=== PATIENT | female | born 1990 | race Caucasian/White ===

== ENCOUNTER → 2016-02-14 | Outpatient (CLI) | payer OTHER ==
[~2016-02-14] MED LIST: MEDLIST
== END | disposition home or self-care (01) ==
LOC: C.PAPS 12:35
PROVIDERS: ATTEND Obstetrics & Gynecology
DX: Z01.419 Encounter for gynecological examination (general) (routine) without abnormal findings (principal)

== ENCOUNTER 2023-10-02 07:39 | Inpatient (IN) ==
[2023-10-02] MEDS ORDERED: OXYTOCIN 30 UNITS/NSS 30 UNITS/500 ML BAG IV PRN (08:15)
[2023-10-02] MEDS ORDERED: LIDOCAINE 1% LOCAL 20 ML VIAL INFIL PRN (08:15)
[2023-10-02] MEDS ORDERED: ACETAMINOPHEN 325 MG TAB PO PRN (08:15)
[2023-10-02 08:56] LABS: Hematocrit (blood only) 39.1 % (37.0-47.0); Hemoglobin 13.2 g/dl (12.0-16.0); Mean Corpuscular Hemoglobin 29.9 pg (25.0-34.0); Mean Corpuscular Hgb Conc 33.8 g/dL (32.0-36.0); Mean Corpuscular Volume 88.5 fL (80.0-100.0); Mean Platelet Volume 9.8 fL (9.4-12.4); Platelet Count 221 K/uL (130-400); RDW Standard Deviation 45.3 fL (36.4-46.3); Red Blood Count 4.42 M/uL (4.20-5.40); White Blood Count 11.57 K/ul (4.8-10.8)
[2023-10-02] MEDS: LACTATED RINGER'S 1,000 ML IV PRN (09:06)
[2023-10-02] MEDS: OXYTOCIN 30 UNITS/NSS 30 UNITS/500 ML BAG IV PRN (09:07)
--- NOTE | 2023-10-02 09:09 | History & Physical Report ---
Date of Service October 02, 2023 Assessment & Plan (1) Need for rhogam due to Rh negative mother: (2) Encounter for induction of labor: Plan Admit for IOL. [place]/pit started Pt has provided their birthing plan; includes desire for minimal pain medication Admission and Anticipated Discharge Date Admission Date: October 02, 2023 History of Present Illness Primary Care Provider: Kevin Benjamin MD Patient is a 33 y/o female currently at 40 5/7 with an TERESA of 09/26/23 as determined by LMP who is here for induction of labor. Her was complicated by breech presentation at 36w, requiring ECV on 09/10. She has had regular appointments with OB. She denies fevers, fatigue, VELIZ, SOB, chest pain, leg swelling, or n/v exceeding baseline -related symptoms. Mild, irregular contractions; movement present; no fluid loss or bloody show; External FHT and external uterine monitors used, FHT cat 1 Blood type: A-; Rhogam given 07/04 Antibody screen: Neg GBS: Neg Rubella: Immune VDRL/RPR: Non-reactive Gonorrhea: Not detected Chalmydia: Not detected HIV: Non-reactive HbSAg: Non-reactive Allergies Allergy/AdvReac Type Severity Reaction Status Date / Time No Known Allergies Allergy Verified 10/02/23 09:53 Home Medications Medication Instructions Recorded Confirmed Type calcium acetate PO 02/08/23 10/01/23 History coenzyme Q10 [Co Q-10] PO 02/08/23 10/01/23 History fish,bora,flax oils-om3,6,9no1 PO 02/08/23 10/01/23 History [Triple [place] 3-6-9] folic acid PO 02/08/23 10/01/23 History vit with calcium-iron tab PO 02/08/23 10/01/23 History fum-folic acid 27 mg-1 mg tablet ferrous sulfate 09/10/23 10/01/23 History valacyclovir 500 mg tablet 500 mg PO BID 5 weeks #70 tabs 09/21/23 10/01/23 Rx (Valtrex) Past Med/Surg History Problem List (Updated 10/02/23 @ 09:10 by Constance Davis MD) Encounter for induction of labor Breech presentation Need for rhogam due to Rh negative mother Encounter for anatomic survey Supervision of normal intrauterine in primigravida Overweight (BMI 25.0-29.9) Fatigue History of melanoma excision 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, autosomal dominant, pre conceptual genetic consult 11/26/19 Medical History Encounter for preconception consultation Encounter for gynecological examination without abnormal finding Fatigue Contact dermatitis Acne Herpes genitalia Surgical History (Updated 11/27/22 @ 10:10 by Jose Chris DO) Melanoma removal from Right shoulder, 2022 S/P tonsillectomy H/O tooth extraction Family History (Updated 10/02/23 @ 09:52 by Kimberly Garcia, JADE) Mother CMT (Eyszjha-Eabdc-Xrldu disease) Lwrqzgr-Tzwmv-Jeurk disease Kidney malignancy Appendix carcinoma Father Skin cancer Eye cancer Hypertension Grandmother (Maternal) Colorectal cancer Grandfather (Paternal) Myocardial infarction Grandmother (Paternal) Melanoma Denies family history of Ovarian cancer Prostate cancer Breast cancer Social History Smoking Status: Never smoker Do You Dip or Chew Tobacco: No; Hx Alcohol Use: No (social) Hx Substance Use: No Preferred Language: Danish Communication Ability: Effective Baby Registry Sales Consultant Required: No Beliefs That Will Affect Care: None marital status: marital status details: Darin (36) [phone] Current Living Situation: Spouse Current Living Situation Comment: lives with , 1 dog current occupational status: employed current occupation: real estate [employer] Childhood Exposure to Second-Hand Smoke: No Dental Care, Regularly: Yes Physical Activity Frequency: 3-4 Times per Week Seatbelt Use: always Sunscreen Use: Yes Do you think of yourself as: straight/heterosexual Gender Identity: Female Assistive Devices: None Physical Exam 2 Physical Exam: General: Alert and oriented. No acute distress CV: Regular rate and rhythm. No murmurs. Respiratory: CTA bilaterally. No rhonchi, wheezes, or crackles. No increased work of breathing. Abdomen: Gravid: Soft, nontender upon palpation Pelvic: 1.5 / 25 / -[address] Mcnamara Lower extremities: NO LE edema. No deep calf pain. Results & Data Results & Data Vital Signs (Past 12 Hours) Vital Signs Pulse BP 10/02/23 08:28 100 H 129/88 Laboratory Results 10/02/23 08:37 Supervising Physician Co-Signing Physician Notes Patient seen with resident and agree with the above findings and plan. Resident Activity Tracking Resident Involvement: Resident Care Provided Care Provided: OB Delivery
[2023-10-02] MEDS: CALCIUM CARBONATE 500 MG CHEWABLE TAB PO PRN (15:17)
--- NOTE | 2023-10-03 04:24 | Labor Progress Brief Note ---
Date of Service October 03, 2023 Subjective Reason For Note: Routine Evaluation Assessment & Plan (1) Encounter for induction of labor: Plan: Minimal progress noted. Spontaneous rupture of membranes at around 1 PM yest erday. Currently at 28 and patient not noting significant discomfort with contractions. Discussed IUPC for monitoring of of contractions as were having difficulty tracking contractions consistently. Patient agreeable to IUPC placement. Will increase maximum Pit dosing up to 36. Vitals within normal limits. Today to monitor. (2) Supervision of normal intrauterine in primigravida: Trimester: third trimester Qualified Code(s): Z34.03 - Encounter for supervision of normal first , third trimester Admission and Anticipated Discharge Date Admission Date: October 02, 2023 Physical Exam Genitourinary: Manual OB Exam: + cervical dilation (4-5), + cervical effacement 70%, + station high and + amniotic fluid meconium OB Exam Monitor Tracing: + external FHT monitor used Results & Data Vital Signs (Past 12 Hours) Vital Signs Temp Pulse Resp BP 10/03/23 04:11 80 128/74 10/03/23 04:07 18 10/03/23 04:07 36.7 C 18 10/03/23 00:42 36.5 C 76 18 134/78 10/02/23 21:51 74 131/88 10/02/23 20:51 18 10/02/23 20:51 18 10/02/23 19:55 18 10/02/23 19:55 18 10/02/23 18:05 36.6 C 18 10/02/23 18:04 72 131/88 10/02/23 18:00 18 10/02/23 18:00 18 10/02/23 17:50 18 10/02/23 17:50 18 Coding Level of Care Code None Diagnoses Encounter for induction of labor Z34.90 Encounter for supervision of normal first in third trimester Z34.03 Trimester: third trimester
[2023-10-03] MEDS ORDERED: Nursing to Pharmacy Communication SCH (08:30)
--- NOTE | 2023-10-03 10:24 | Labor Progress Brief Note ---
Date of Service October 03, 2023 Subjective Presented to inform pt that I am taking over for call after signout from prior provider. Currently on pit break and had a snack, pitocin just restarted Assessment & Plan (1) Encounter for induction of labor: Plan: 33 yo G1 at 41 wga here for iol VSS Fetus cat 1 Labor - s/p pit break, iupc appears to be in correct position so will titrate pitocin. Pt desires to continue induction process GBS neg epidural prn Admission and Anticipated Discharge Date Admission Date: October 02, 2023 Physical Exam Genitourinary: Manual OB Exam: + cervical dilation (4-5), + cervical effacement 50% and + station -2 OB Exam Monitor Tracing: + external FHT monitor used, + intra-uterine pressure catheter used (q7, not adequate yet) and + category I (130/mod/+accel/-decel) Results & Data Vital Signs (Past 12 Hours) Vital Signs Temp Pulse Resp BP 10/03/23 09:43 76 129/77 10/03/23 08:52 97.9 F 84 20 126/75 10/03/23 08:11 84 123/78 10/03/23 07:05 20 10/03/23 07:05 97.9 F 20 10/03/23 06:22 98.1 F 82 18 124/81 10/03/23 04:11 80 128/74 10/03/23 04:07 18 10/03/23 04:07 98.1 F 18 10/03/23 00:42 97.7 F 76 18 134/78 Coding Level of Care Code None Diagnoses Encounter for induction of labor Z34.90
--- NOTE | 2023-10-03 13:28 | Labor Progress Brief Note ---
Date of Service October 03, 2023 Subjective Resting, pit at 20, still not feeling too much Assessment & Plan (1) Encounter for induction of labor: Plan: 33 yo G1 at 41 wga here for iol VSS Fetus cat 1 Labor - pit at 20 now, I think SVE is essentially unchanged. Discussed mvu goals and would go to about 30 for pit but if still really not progressing, may be indicative of low likelihood of success/ftp for this induction. Pt verbalized understanding. Will continue induction, iupc exchanged to make sure still reading appropriately GBS neg epidural prn Admission and Anticipated Discharge Date Admission Date: October 02, 2023 Physical Exam Genitourinary: Manual OB Exam: + cervical dilation (4-5), + cervical effacement 50% and + station -2 OB Exam Monitor Tracing: + external FHT monitor used, + intra-uterine pressure catheter used (q4. mvus 100-150) and + category I (130/mod/+accel/-decel) Results & Data Vital Signs (Past 12 Hours) Vital Signs Temp Pulse Resp BP 10/03/23 12:58 98.4 F 76 20 128/80 10/03/23 12:01 81 123/83 10/03/23 10:55 98.4 F 81 20 128/76 10/03/23 09:43 76 129/77 10/03/23 08:52 97.9 F 84 20 126/75 10/03/23 08:11 84 123/78 10/03/23 07:05 20 10/03/23 07:05 97.9 F 20 10/03/23 06:22 98.1 F 82 18 124/81 10/03/23 04:11 80 128/74 10/03/23 04:07 18 10/03/23 04:07 98.1 F 18 Coding Level of Care Code None Diagnoses Encounter for induction of labor Z34.90
[2023-10-03] MEDS ORDERED: SODIUM CHLORIDE 0.9% 250 ML IV PRN (15:48)
[2023-10-03] MEDS: LACTATED RINGER'S 1,000 ML IV SCH (16:35)
[2023-10-03] MEDS ORDERED: fentaNYL citrate PF 100 MCG/2 ML VIAL ONE (16:46)
--- NOTE | 2023-10-03 16:46 | Labor Progress Brief Note ---
Date of Service October 03, 2023 Subjective feeling some ctx at 3/10 but not consistent Assessment & Plan (1) Encounter for induction of labor: Plan: 33 yo G1 at 41 wga here for iol VSS Fetus cat 1 Labor - pit has hit 30 again now and still can't get ctx adequate throughout this time, cervix has not changed essentially since yesterday afternoon. Discussed given this would meet criteria for failed induction and rec for CS. Pt and fob in agreement and desired to proceed. Discussed indications, risks, benefits, alternatives with risks including infection, bleeding, injury to adjacent structures (bowel, bladder, ureters, blood vessels, nerves, baby), possible need for blood transfusion and/or life saving hysterectomy, VTE. Consent reviewed in detail w/ pt and signed after all questions answered to her satisfaction. Admission and Anticipated Discharge Date Admission Date: October 02, 2023 Physical Exam Genitourinary: Manual OB Exam: + cervical dilation (4-5), + cervical effacement 50% and + station -2 OB Exam Monitor Tracing: + external FHT monitor used, + intra-uterine pressure catheter used (q3-4. mvus adequate for very short period of time then inadequate s/p void) and + category I (130/mod/+ accel/-decel) Results & Data Vital Signs (Past 12 Hours) Vital Signs Temp Pulse Resp BP 10/03/23 16:03 76 127/87 10/03/23 15:01 84 142/94 H 10/03/23 15:00 20 10/03/23 15:00 98.2 F 20 10/03/23 14:01 83 131/84 10/03/23 12:58 98.4 F 76 20 128/80 10/03/23 12:01 81 123/83 10/03/23 10:55 98.4 F 81 20 128/76 10/03/23 09:43 76 129/77 10/03/23 08:52 97.9 F 84 20 126/75 10/03/23 08:11 84 123/78 10/03/23 07:05 20 10/03/23 07:05 97.9 F 20 10/03/23 06:22 98.1 F 82 18 124/81 Coding Level of Care Code None Diagnoses Encounter for induction of labor Z34.90
[2023-10-03] MEDS ORDERED: MoRPHine SULFATE PF 1 MG/ML 10 ML AMP/VIAL ONE (16:47)
[2023-10-03] MEDS ORDERED: NALOXONE HCL 0.08 MG in SYRINGE 1.8 ML IV PRN (16:55)
[2023-10-03] MEDS ORDERED: HYDROmorphone INJ 0.5 MG/0.5 ML SYR IV PRN (16:55)
[2023-10-03] MEDS ORDERED: MoRPHine SULFATE 2 MG/ML CARP IV PRN (16:55)
[2023-10-03] MEDS ORDERED: NALOXONE HCL 0.4 MG/1 ML VIAL/CARP IV PRN (16:55)
[2023-10-03] MEDS ORDERED: ePHEDrine sulfate 50 MG/ML AMP IV PRN (16:55)
[2023-10-03] MEDS ORDERED: MoRPHine SULFATE PF 1 MG/ML 10 ML AMP/VIAL INT SPINAL ONE (16:55)
[2023-10-03] MEDS ORDERED: LACTATED RINGER'S 500 ML IV PRN (16:55)
[2023-10-03] MEDS ORDERED: ONDANSETRON INJ 2 MG/ML 2 ML VIAL IV PRN (16:55)
[2023-10-03] MEDS ORDERED: KETOROLAC 30 MG/ML VIAL IV PRN (16:55)
[2023-10-03] MEDS ORDERED: NALBUPHINE HCL INJ 10 MG/ML AMP IV PRN (16:55)
[2023-10-03] MEDS ORDERED: NALOXONE HCL 1 MG in SODIUM CHLORIDE 0.9% 1,000 ML IV PRN (16:55)
--- NOTE | 2023-10-03 16:55 | Anesthesiology Consultation ---
Date of Service October 03, 2023 Assessment & Plan ASA ASA2 Proposed Anesthesia Anesthesia Type: Spinal Risk / Benefits Reviewed With: PT / POA / Parent / Guardian, Accepts Plan and Informed Consent Obtained History Surgery Operation Date: 10/03/23 16:45 Proposed Procedures p Section in LD - Barbara Montez MD Height/Weight Height: 5 ft 6 in Weight: 105.687 kg Allergies Allergy/AdvReac Type Severity Reaction Status Date / Time No Known Allergies Allergy Verified 10/02/23 09:53 Medications Home Medications Medication Instructions Recorded Confirmed Last Taken valacyclovir 500 mg tablet 500 mg PO BID 5 weeks #70 tabs 09/21/23 10/02/23 10/02/23 (Valtrex) docusate sodium 100 mg capsule 100 mg PO DAILY 10/02/23 10/02/23 10/02/23 (Colace) vits no.124-ferrous fum 1 tab PO DAILY 10/02/23 10/02/23 10/02/23 27 mg iron-folic acid 800 mcg tablet ( Vitamin) Active Medications Generic Name Dose Route Start Last Admin Trade Name Freq PRN Reason Stop Dose Admin Calcium Carbonate 1,000 mg 10/02/23 15:06 10/02/23 15:17 Calcium Carbonate 500 Mg Chewable Tab PO 11/01/23 15:05 1,000 mg Q8H PRN Administration Indigestion Lactated Ringer's 1,000 mls @ 125 mls/hr 10/02/23 08:15 10/03/23 16:35 Lr IV 10/04/23 08:14 999 mls/hr .Q8H PRN Administration L&D Protocol Protocol Oxytocin 30 units in 500 mls @ 30 mls/hr 10/02/23 08:22 10/03/23 16:27 Pitocin 30 Units/Nss IV 10/04/23 08:21 Infused .[id number] PRN Titration Labor Induction/Augmentation Protocol 1.8 UNITS/HR Lactated Ringer's 1,000 mls @ 999 mls/hr 10/03/23 16:45 10/03/23 16:35 Lr IV 10/03/23 17:45 Not Given .Q1H1M ANGIE NPO Date Last Intake of Fluids: 10/03/23 Time Last Intake of Fluids: 16:00 Date Last Intake of Solids: 10/03/23 Time Last Intake of Solids: 15:30 Past Medical History Medical History Encounter for preconception consultation Encounter for gynecological examination without abnormal finding Contact dermatitis Acne Herpes genitalia Exercise / Class Metabolic Activity II 4-5 Yardwork/Stairs/Walk up hill Past Family History Family History Mother CMT (Mqcvpry-Cqzlf-Noppq disease) Swvuqmr-Brmxx-Zemmv disease Kidney malignancy Appendix carcinoma Father Skin cancer Eye cancer Hypertension Grandmother (Maternal) Colorectal cancer Grandfather (Paternal) Myocardial infarction Grandmother (Paternal) Melanoma Denies family history of Ovarian cancer Prostate cancer Breast cancer Past Surgical History Surgical History Melanoma removal from Right shoulder, 2022 S/P tonsillectomy H/O tooth extraction Past Anesthesia History No Hx of Anesthesia Complications and No Family Hx of Anesthesia Complications History of PONV No Hx of PONV and No Hx of Motion Sickness Social History Smoking Status: Never smoker Do You Dip or Chew Tobacco: No Hx Alcohol Use: No (social) Alcohol type: beer Hx Substance Use: No Review of Systems denies fever/cough/ colds/ chest pain/ SOB/ SANJUANA denies SANJUANA Physical Exam Vital Signs Last Vital Signs Temp 36.8 C 10/03/23 15:00 Pulse 76 10/03/23 16:03 Resp 20 10/03/23 15:00 BP 127/87 10/03/23 16:03 ENMT Mouth: no TMJ abnormality and no dentition abnormality Thyromental Distance: > or= 3.5 Finger Breadths Mallampati Class: II Neck neck extension not limited Respiratory normal respiratory effort; no respiratory distress Auscultation: lungs clear to auscultation bilaterally Cardiovascular Rate/Rhythm: regular rate and regular rhythm Neurologic moves all extremities Psychiatric Orientation: alert and oriented x 3 Testing Laboratory Results 10/02/23 08:37 Blood Type A Negative 10/02/23 08:37 Antibody Screen POSITIVE A 10/02/23 08:37
[2023-10-03] MEDS ORDERED: DC INTRASPINAL MORPHINE SCH (17:00)
[2023-10-03] MEDS ORDERED: SODIUM CHLORIDE 0.9% 1,000 ML IV SCH (17:00)
[2023-10-03] MEDS: ACETAMINOPHEN 500 MG TAB PO PRN (17:00)
[2023-10-03] MEDS ORDERED: NO NARCOTICS OR SEDATIVES SCH (17:00)
[2023-10-03] MEDS: AZITHROMYCIN 500 MG in DEXTROSE 5% 250 ML IV SCH (17:01)
[2023-10-03] MEDS: CITRIC ACID/SODIUM CITRATE 15 ML UDC PO SCH (17:02)
[2023-10-03] MEDS ORDERED: OXYTOCIN 10 UNITS/ML VIAL ONE ×2 (17:27→17:29)
[2023-10-03] MEDS ORDERED: ONDANSETRON INJ 2 MG/ML 2 ML VIAL ONE (17:29)
[2023-10-03] MEDS ORDERED: PHENYLEPHRINE HCL 25 MG/250 ML NSS IV ONE (17:29)
[2023-10-03] MEDS ORDERED: LACTATED RINGER'S 1,000 ML IV SCH ×2 (17:45→19:08)
[2023-10-03] MEDS: ARISTA ABSORBABLE HEMOSTAT 3GM TOP ONE (18:01)
[2023-10-03] MEDS: ACETAMINOPHEN 500 MG TAB PO SCH (18:23)
[2023-10-03] MEDS: ceFAZolin 3000MG 3,000 MG/72.5 ML BAG IV SCH (18:23)
--- NOTE | 2023-10-03 18:37 | Operative Report ---
Post Operative Report Pre & Post Diagnosis Operation Date: 10/03/23 16:45 Pre-Op Diagnosis: intrauterine at 41 wks, failed induction, primary section Post-Op Diagnosis: same I identified the patient and participated in the time-out.: Yes Procedure Operation Date: 10/03/23 16:45 Actual Procedures p Primary Low Transverse Section in LD for living male child at 1739(Bilateral) - Barbara Montez MD Surgeon Barbara Montez MD Baseball Coach JADE Ocampo Quantitative Blood Loss (QBL) 682 Findings Consistent with Post-Op Diagnosis Uterus with small posterior subserosal fibroid but otherwise wnl, normal fallopian tubes and ovaries bilaterally. Viable male with APGARS of 8 and 9 at 1 and 5 minutes Fluids 1L crystalloid, UOP 100cc clear urine Specimens cord blood, placenta Drains desai draining clear urine Anesthesia Type Spinal Complications none Disposition Accompanied Patient To Recovery: Yes Disposition: L&D Indications 33 yo G1 at 41 wga presented for induction of labor one day ago. Induction was begun with desai bulb and pitocin. Following bulb expulsion she had SROM. Pitocin was titrated up to 30 with minimal change and IUPC in place so pit break was given. Pitocin was titrated up again to 30 still without adequate contractions. She did not make any further progress and so discussed that this was failed induction and recommended to proceed with above procedure Description of Procedure The patient was taken to the operating room after consents were ensured. The patient was properly identified. Spinal anesthesia was obtained without difficulty. The patient was placed in a dorsal supine position with left lateral tilt, then prepped and draped in normal sterile fashion. Surgical time out was performed. Antibiotics were given for prophylaxis. Anesthesia was tested to e nsure adequate surgical levels. Pfannenstiel skin incision was performed and carried down to the underlying fascia with a knife. The fascia was then nicked in the midline and extended laterally with pickjimena and Armendariz scissors. Superior portion of the fascia was grasped with Kochers x2 and elevated off the underlying rectus muscles using blunt dissection. Inferior portion of the fascia was then grasped with Emmett clamps x2 and also elevated off the underlying muscles with blunt dissection. Midline was identified. The peritoneum was then entered and extended to provide adequate room for delivery of baby. A hand was inserted into the abdomen, uterus was noted to be clear of adhesions. Bladder blade was inserted, bladder flap was created in the usual fashion. A low transverse uterine incision was made in the uterus and extended bluntly in a superior to inferior fashion. Amniotomy was made with clear fluid at the time of rupture. head was grasped and elevated through the hysterotomy in an atraumatic fashion. The baby delivered in MARÍA position, no nuchal cord. Remainder of the body delivered without incident. Nose and mouth were bulb suctioned on the surgical field. The cord was double clamped and cut, baby was handed off to awaiting pediatrics staff. Cord segment and blood were obtained. Placenta was then expressed from the uterus. The uterus was exteriorized. Several passes were made inside the uterus to remove the remaining membranes. Attention was then turned to the hysterotomy, which was then closed with a running locked suture of 0 Vicryl on a CTX needle. An imbricating layer was then performed using 0-Monocryl. An area of continued bleeding near bladder flap was made hemostatic with a figure of eight stitch. There was noted to be good hemostasis. The posterior cul-de-sac was then inspected and cleaned of clot and debris. The hysterotomy was again inspected and noted to be hemostatic. The uterus was returned to the abdomen. The right and left pericolic gutters were cleaned of all clot and debris. The hysterotomy was again noted to be hemostatic. Space of Retzius was noted to be hemostatic. Jack was applied to the hysterotomy. The fascia was then closed with a running suture of 0 Vicryl on a CT1 needle. Subcutaneous tissue was copiously irrigated and noted to be hemostatic. Subcutaneous tissue was re-approximated using 2-0 plain gut. The skin was then closed with a running suture of 3-0 Monocryl in a subcuticular fashion. At termination of the procedure, fundal pressure was applied and a moderate amount of lochia was expressed. Pressure dressing was applied to the patient. She tolerated the procedure well. All sponge, needle, instrument counts were correct x 2. I attest to the content of the Intraoperative Record and any orders documented therein. Any exceptions are noted below. OB Procedure Charges 84470
[2023-10-03] MEDS: OXYTOCIN 20 UNITS/1002ML LR IV ONE (18:41)
[2023-10-03] MEDS ORDERED: SENNA 8.6 MG TAB PO PRN (19:08)
[2023-10-03] MEDS ORDERED: BENZOCAINE 20% SPRY 85 APPLN/85 GM CAN EXT PRN (19:08)
[2023-10-03] MEDS ORDERED: MAGNESIUM HYDROXIDE SUSP 30 ML UDC PO PRN (19:08)
[2023-10-03] MEDS ORDERED: CALCIUM CARBONATE 500 MG CHEWABLE TAB PO PRN (19:08)
[2023-10-03] MEDS ORDERED: HYDROCORTISONE ACETATE 25 MG SUPP PR PRN (19:08)
[2023-10-03] MEDS: DIPHTHER/TETAN/PERTUS Vaccine (Tdap, Adol/Adult) 0.5mL IM ONE (19:26)
--- NOTE | 2023-10-03 19:35 | Anesthesiology Progress Note ---
Date of Service October 03, 2023 Anesthesia Post Procedure Vital Signs Vital Signs: Temp Pulse Resp BP Pulse Ox 10/03/23 19:32 66 114/59 L 10/03/23 19:31 65 96 10/03/23 19:26 74 96 10/03/23 19:22 67 122/59 L 10/03/23 19:21 69 95 10/03/23 19:16 69 95 10/03/23 19:12 61 114/59 L 10/03/23 19:11 71 94 10/03/23 19:06 67 94 10/03/23 19:02 20 10/03/23 19:02 62 127/55 L 10/03/23 19:01 67 95 10/03/23 18:56 66 95 10/03/23 18:52 20 10/03/23 18:52 67 127/60 10/03/23 18:51 67 95 10/03/23 18:46 72 95 10/03/23 18:45 73 121/58 L 10/03/23 18:42 20 10/03/23 18:42 80 94 10/03/23 18:41 76 96 10/03/23 18:36 69 95 10/03/23 18:32 36.6 C 20 10/03/23 18:32 75 120/65 10/03/23 18:31 80 96 10/03/23 16:03 76 127/87 10/03/23 15:01 84 142/94 H 10/03/23 15:00 20 10/03/23 15:00 36.8 C 20 10/03/23 14:01 83 131/84 10/03/23 12:58 36.9 C 76 20 128/80 10/03/23 12:01 81 123/83 10/03/23 10:55 36.9 C 81 20 128/76 10/03/23 09:43 76 129/77 10/03/23 08:52 36.6 C 84 20 126/75 10/03/23 08:11 84 123/78 10/03/23 07:05 20 10/03/23 07:05 36.6 C 20 10/03/23 06:22 36.7 C 82 18 124/81 10/03/23 04:11 80 128/74 10/03/23 04:07 18 10/03/23 04:07 36.7 C 18 10/03/23 00:42 36.5 C 76 18 134/78 10/02/23 21:51 74 131/88 10/02/23 20:51 18 10/02/23 20:51 18 10/02/23 19:55 18 10/02/23 19:55 18 Transfer of Care Handoff Completed per policy Notes Mental Status: alert / awake / arousable and participated in evaluation Patient Amnestic to Procedure: Yes Nausea / Vomiting: adequately controlled Pain: adequately controlled Airway Patency, RR, SpO2: stable & adequate BP & HR: stable & adequate Hydration State: stable & adequate Neuraxial Anesthesia: was administered and sensory block is resolving Anesthetic Complications: no major complications apparent and Pt Satisfied with anesthetic care
[2023-10-03] MEDS: OXYTOCIN 20 UNITS/LR 1,002 ML IV SCH (20:33)
[2023-10-03] MEDS: KETOROLAC 30 MG/ML VIAL IV SCH (21:31)
[2023-10-03] MEDS: SIMETHICONE 80 MG CHEW PO SCH (21:31)
[2023-10-03] MEDS: DOCUSATE SODIUM 100 MG CAP PO SCH (21:31)
[2023-10-03] MEDS: diphenhydrAMINE 50 MG/ML VIAL IV PRN (22:13)
[2023-10-04] MEDS: IBUPROFEN 600 MG TAB PO SCH (00:07)
[2023-10-04] MEDS: ACETAMINOPHEN 325 MG TAB PO SCH (00:07)
--- NOTE | 2023-10-04 06:01 | Obstetrical Progress Note ---
Date of Service <Constance Davis MD - Last Filed: 10/04/23 07:15> October 04, 2023 Assessment & Plan <Constance Davis MD - Last Filed: 10/04/23 07:15> (1) Encounter for induction of labor: (2) Need for rhogam due to Rh negative mother: (3) care and examination: Plan POD#1: Stable, continue routine care, continue OOB and ambulation, instructed to remove wound dressing in shower today Plan to d/c Sat 10/05 Rh neg, gbs neg, ri <Barbara Montez MD - Last Filed: 10/04/23 07:22> (1) Encounter for induction of labor: (2) Need for rhogam due to Rh negative mother: (3) care and examination: Subjective <Constance Davis MD - Last Filed: 10/04/23 07:15> Cinthya is a 33yo who is POD#1 following delivery at 41 weeks. She is ambulating, eating, and drinking normally. She has not attempted to urinate since cath removed. Has not had BM or passed gas. Is breast feeding. Constitutional: no fever, no chills or no sweats Respiratory: no dyspnea Cardiovascular: no chest pain, no palpitations or no calf pain Breast: no breast pain Genitourinary (female): no dysuria Neurologic: no headache(s) no changes in vision, no headaches Physical Exam <Constance Davis MD - Last Filed: 10/04/23 07:15> General: Alert, oriented. No acute distress. Cardiac: Regular rate and rhythm, no murmurs, rubs, or gallops. Respiratory: Clear to auscultation bilaterally, no wheezes/rales/rhonchi. No increased work of breathing. Symmetrical chest rise. No respiratory distress. Abdomen: Soft, nontender, nondistended. Bowel sounds present. Uterus: Uterine fundus firm, surgical dressing clean, dry, intact. Lower extremities: No lower extremity edema or swelling. No deep calf pain. Results & Data <Constance Davis MD - Last Filed: 10/04/23 07:15> Vital Signs (Past 12 Hours) Vital Signs Temp Pulse Pulse Resp BP BP Pulse Ox 10/04/23 05:15 16 90 10/04/23 04:10 37.7 C H 106 H 16 124/75 90 10/04/23 04:10 16 90 10/04/23 03:30 16 92 10/04/23 02:30 16 91 10/04/23 01:30 16 91 10/04/23 00:33 14 95 10/03/23 23:30 37.2 C 83 16 120/77 95 10/03/23 23:00 16 94 10/03/23 22:00 16 95 10/03/23 21:00 36.7 C 72 16 127/79 99 10/03/23 21:00 16 99 10/03/23 20:42 68 131/76 10/03/23 20:41 71 97 10/03/23 20:36 69 98 10/03/23 20:32 18 10/03/23 20:32 69 131/71 10/03/23 20:31 71 98 10/03/23 20:26 68 98 10/03/23 20:23 64 141/62 H 10/03/23 20:21 68 98 10/03/23 20:16 72 98 10/03/23 20:12 70 156/77 H 10/03/23 20:11 70 97 10/03/23 20:06 72 97 10/03/23 20:02 18 10/03/23 20:02 72 141/66 H 10/03/23 20:01 75 97 10/03/23 19:56 68 98 10/03/23 19:52 71 124/68 10/03/23 19:51 72 97 10/03/23 19:46 69 97 10/03/23 19:42 62 122/67 10/03/23 19:41 63 97 10/03/23 19:36 70 97 10/03/23 19:32 18 10/03/23 19:32 18 10/03/23 19:32 66 114/59 L 10/03/23 19:31 65 96 10/03/23 19:26 74 96 10/03/23 19:22 18 10/03/23 19:22 67 122/59 L 10/03/23 19:21 69 95 10/03/23 19:16 69 95 10/03/23 19:12 37.0 C 18 10/03/23 19:12 10/03/23 19:12 61 114/59 L 10/03/23 19:11 71 94 10/03/23 19:06 67 94 10/03/23 19:02 20 10/03/23 19:02 62 127/55 L 10/03/23 19:01 67 95 10/03/23 18:56 66 95 10/03/23 18:52 20 10/03/23 18:52 67 127/60 10/03/23 18:51 67 95 10/03/23 18:46 72 95 10/03/23 18:45 73 121/58 L 10/03/23 18:42 20 10/03/23 18:42 80 94 10/03/23 18:41 76 96 10/03/23 18:36 69 95 10/03/23 18:32 36.6 C 20 10/03/23 18:32 75 120/65 10/03/23 18:31 80 96 O2 Del Method 10/04/23 05:15 10/04/23 04:10 Room Air 10/04/23 04:10 10/04/23 03:30 10/04/23 02:30 10/04/23 01:30 10/04/23 00:33 10/03/23 23:30 Room Air 10/03/23 23:00 10/03/23 22:00 10/03/23 21:00 Room Air 10/03/23 21:00 10/03/23 20:42 10/03/23 20:41 10/03/23 20:36 10/03/23 20:32 10/03/23 20:32 10/03/23 20:31 10/03/23 20:26 10/03/23 20:23 10/03/23 20:21 10/03/23 20:16 10/03/23 20:12 10/03/23 20:11 10/03/23 20:06 10/03/23 20:02 10/03/23 20:02 10/03/23 20:01 10/03/23 19:56 10/03/23 19:52 10/03/23 19:51 10/03/23 19:46 10/03/23 19:42 10/03/23 19:41 10/03/23 19:36 10/03/23 19:32 10/03/23 19:32 10/03/23 19:32 10/03/23 19:31 10/03/23 19:26 10/03/23 19:22 10/03/23 19:22 10/03/23 19:21 10/03/23 19:16 10/03/23 19:12 10/03/23 19:12 Room Air 10/03/23 19:12 10/03/23 19:11 10/03/23 19:06 10/03/23 19:02 10/03/23 19:02 10/03/23 19:01 10/03/23 18:56 10/03/23 18:52 10/03/23 18:52 10/03/23 18:51 10/03/23 18:46 10/03/23 18:45 10/03/23 18:42 10/03/23 18:42 10/03/23 18:41 10/03/23 18:36 10/03/23 18:32 10/03/23 18:32 10/03/23 18:31 Laboratory Results 10/04/23 05:56 Supervising Physician <Barbara Montez MD - Last Filed: 10/04/23 07:22> Co-Signing Physician Notes Resident Physician Supervision Note: I interviewed and examined the patient. Discussed with Dr. Davis and agree with findings and plan as documented in the note. Any exceptions or clarifications are listed here: POD1 s/p pLTCS, doing well. VSS, exam benign and wnl. Dressing c/d/i, will remove in shower today. DTV and ambulate, continue routine care Documented By: Barbara Montez MD Resident Activity Tracking <Constance Davis MD - Last Filed: 10/04/23 07:15> Resident Involvement: Resident Care Provided Care Provided: Adult Hospital Medicine
[2023-10-04 06:32] LABS: Hematocrit (blood only) 33.3 % (37.0-47.0); Hemoglobin 11.5 g/dl (12.0-16.0); Mean Corpuscular Hemoglobin 30.4 pg (25.0-34.0); Mean Corpuscular Hgb Conc 34.5 g/dL (32.0-36.0); Mean Corpuscular Volume 88.1 fL (80.0-100.0); Mean Platelet Volume 9.8 fL (9.4-12.4); Platelet Count 154 K/uL (130-400); RDW Standard Deviation 44.9 fL (36.4-46.3); Red Blood Count 3.78 M/uL (4.20-5.40); White Blood Count 12.99 K/ul (4.8-10.8)
[2023-10-04 07:02] LABS: Basophils # (auto) 0.02 K/uL (0.00-0.20); Basophils % (auto) 0.2 %; Eosinophils # (auto) 0.01 K/uL (0.00-0.50); Eosinophils % (auto) 0.1 %; Immature Granulocytes # (auto) 0.05 K/uL (0.01-0.20); Immature Granulocytes % (auto) 0.4 %; Lymphocytes # (auto) 0.53 K/uL (1.20-3.40); Lymphocytes % (auto) 4.1 %; Monocytes # (auto) 0.69 K/uL (0.11-0.59); Monocytes % (auto) 5.3 %; Neutrophils # (auto) 11.69 K/uL (1.40-6.50); Neutrophils % (auto) 89.9 %
[2023-10-04] MEDS: FERROUS SULFATE 325 MG TAB PO SCH (08:45)
[2023-10-04] MEDS: PRENATAL VITAMIN 1 TAB PO SCH (08:45)
[2023-10-04] MEDS ORDERED: PROMETHAZINE 12.5 MG/50.5 ML BAG IV PRN (10:56)
[2023-10-04] MEDS ORDERED: HYDROmorphone INJ 0.5 MG/0.5 ML SYR IV PRN (10:56)
[2023-10-04] MEDS ORDERED: diphenhydrAMINE Capsule 25 MG CAP PO PRN (10:56)
[2023-10-04] MEDS ORDERED: diphenhydrAMINE 50 MG/ML VIAL IV PRN (10:56)
[2023-10-04] MEDS ORDERED: ONDANSETRON INJ 2 MG/ML 2 ML VIAL IV PRN (10:56)
[2023-10-04] MEDS: bisacodyL 5 MG TABEC PO SCH (20:46)
[2023-10-04] MEDS: oxyCODONE HCL IR 5 MG TAB (IMMEDIATE RELEASE) PO PRN (20:48)
[2023-10-05 06:29] LABS: Hematocrit (blood only) 31.4 % (37.0-47.0); Hemoglobin 10.7 g/dl (12.0-16.0)
--- NOTE | 2023-10-05 07:19 | Obstetrical Progress Note ---
Date of Service <Constance Davis MD - Last Filed: 10/05/23 08:04> October 05, 2023 Assessment & Plan <Constance Davis MD - Last Filed: 10/05/23 08:04> (1) Encounter for induction of labor: (2) Need for rhogam due to Rh negative mother: (3) care and examination: Plan POD#2: Stable, continue routine care, continue OOB and ambulation, diet as tolerated Plan to d/c Sat 10/05 Rh neg, gbs neg, ri <Makenzie Nicholson MD, FACOG - Last Filed: 10/05/23 08:23> (1) Encounter for induction of labor: (2) Need for rhogam due to Rh negative mother: (3) care and examination: Subjective <Constance Davis MD - Last Filed: 10/05/23 08:04> Cinthya is a 33yo who is POD#2 following delivery at 41 weeks. She is eating, drinking, ambulating, and urinating normally. Has not had BM but is passing gas. 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 Is breast feeding. Constitutional: no fever, no chills or no sweats Respiratory: no dyspnea Cardiovascular: no chest pain, no palpitations or no calf pain Breast: no breast pain Genitourinary (female): no dysuria Neurologic: no headache(s) Physical Exam <Constance Davis MD - Last Filed: 10/05/23 08:04> General: Alert, oriented. No acute distress. Cardiac: Regular rate and rhythm, no murmurs, rubs, or gallops. Respiratory: Clear to auscultation bilaterally, no wheezes/rales/rhonchi. No increased work of breathing. Symmetrical chest rise. No respiratory distress. Abdomen: Soft, nontender, nondistended. Bowel sounds present. Uterus: Uterine fundus firm, surgical scar clean and healing well. Some erythema on the mons. Lower extremities: No lower extremity edema or swelling. No deep calf pain. Results & Data <Constance Davis MD - Last Filed: 10/05/23 08:04> Vital Signs (Past 12 Hours) Vital Signs Temp Pulse Resp BP Pulse Ox O2 Del Method 10/04/23 23:06 36.5 C 82 15 114/70 97 Room Air 10/04/23 19:20 36.8 C 96 H 18 111/66 95 Room Air Laboratory Results 10/05/23 05:42 Supervising Physician <Makenzie Nicholson MD, FACOG - Last Filed: 10/05/23 08:23> Co-Signing Physician Notes Resident Physician Supervision Note: I interviewed and examined the patient. Discussed with Dr. Davis and agree with findings and plan as documented in the note. Any exceptions or clarifications are listed here: Doing well. Routine care. PPD 2. Desires d/c tomorrow. Documented By: Makenzie Nicholson MD, FACOG Resident Activity Tracking <Constance Davis MD - Last Filed: 10/05/23 08:04> Resident Involvement: Resident Care Provided Care Provided: Adult Hospital Medicine
[2023-10-05] MEDS ORDERED: bisacodyL 10 MG SUPP PR PRN (18:30)
--- NOTE | 2023-10-05 21:47 | Obstetrical Progress Note ---
Date of Service October 05, 2023 Assessment & Plan (1) Rash: (2) Post-operative state: Plan i am not sure if this rash is related to contact dermatitis or drug rxn. less likely cellulitis. i think the swelling of her mons and pink color could be due to retractor and less likely hematoma (given incision was sandbagged). i think less so the latter because not firm, soft. The incision site on anterior edge also not seeming to be confluent with the upper rash and it seems early for presentation of a skin infection farida with no tenderness. I explained all to couple. I did outline some of the most babb red areas with pen. I did explain we may just need to monitor and see what happens over time, likely plan incision check in office upon dc if etiology of rash is still uncertain. for now will recheck in am and they agree. Admission and Anticipated Discharge Date Admission Date: October 02, 2023 Subjective [address]sp due to concerns of rash on abdomen. pt notes rash on abdomen, from umbilicus down and also swelling and redness of mons pubis. rash on abdomen warm to touch but not itching. does have history of sensitive skin. as far as she knows not taking any new meds, except using some oxycodone pain killer. no fever. no incisional drainage. apparently incision did have bleeding postop and was sandbagged and steris applied. Review of Systems Constitutional: as per Subjective / HPI Physical Exam Constitutional: WD/WN, vitals as above Gastrointestinal (Abdomen): incision intact , clean and dry. mons is pink and swollen, nt. area of papular c onfluent rash above incision is marked, its irregular and border seems to be a couple finger breadths above the incision line. on lateral right side into flank is more of a pinpoint papular at times confluent rash. non pruritic and that is also in her upper thigh area on right. all of this less so or absent on left. Results & Data Vital Signs (Past 12 Hours) Vital Signs Temp Pulse Resp BP Pulse Ox O2 Del Method 10/05/23 15:21 98.1 F 97 H 16 138/92 97 Room Air PG Care Time/CCT Total # of Minutes Spent Total Time Spent with Patient: Total time spent is greater than 50% in coordination of care (as documented) at patient's floor/unit and/or counseling patient: Coding Level of Care Code None Diagnoses Rash R21 Post-operative formerly [facility] Z98.890
[2023-10-05] MEDS: ACETAMINOPHEN 325 MG TAB PO PRN (23:59)
[2023-10-05] MEDS: IBUPROFEN 600 MG TAB PO PRN (23:59)
--- NOTE | 2023-10-06 07:01 | Obstetrical Progress Note ---
Date of Service October 06, 2023 Assessment & Plan (1) care and examination: Plan stable, routine care. desires dc home. instructions reviewed. f/u 6wk pp. discussed rash, she prefers to monitor at home and call if feels needs recheck in office sooner than 6wk check. breast. rhpos. ri. Day #:: 3 Subjective Ambulation: ambulating normally Voiding: no voiding problems Passing Gas:: Yes Diet Tolerance:: regular diet Lochia:: Small Feeding Type:: breast feeding notes feels rash is better. ready to go home. Constitutional: + as per Subjective / HPI Physical Exam Constitutional WD/WN, vitals as above Respiratory normal respiratory effort, lungs clear to auscultation Cardiovascular Rate/Rhythm: regular rate and regular rhythm Gastrointestinal (Abdomen) Inspection/Auscultation: abdomen normal to inspection and + abdominal surgical incision ( incision intact , clean and dry. mons is pink and swollen, no change. ) Percussion/Palpation: abdomen soft Fundus firm 2cm down area of papular confluent rash above incision that was marked is unchanged, its irregular and border seems to be a couple finger breadths above the incision line, no spread outside of marked lines. on lateral right side into flank is m ore of a confluent rash. non pruritic and that is also in her upper thigh area on right. all of this less so or absent on left. Musculoskeletal nt calves no edema Neurologic grossly normal Psychiatric A+Ox3, euthymic affect Results & Data Vital Signs (Past 12 Hours) Vital Signs Temp Pulse Resp BP O2 Del Method 10/06/23 00:00 97.9 F 89 18 131/84 Room Air 10/05/23 20:20 98.1 F 96 H 16 121/80 Room Air
[2023-10-06 08:05] VITALS: BP 130/86; PULSE 71; RESP 17; TEMP 98.2; O2SAT 98
--- NOTE | 2023-10-09 09:13 | Discharge Summary ---
Date of Service October 09, 2023 Admission HPI Per Admitting Provider Patient is a 33 y/o female currently at 40 5/7 with an TERESA of 09/26/23 as determined by LMP who is here for induction of labor. Her was complicated by breech presentation at 36w, requiring ECV on 09/10. She has had regular appointments with OB. She denies fevers, fatigue, VELIZ, SOB, chest pain, leg swelling, or n/v exceeding baseline -related symptoms. Mild, irregular contractions; movement present; no fluid loss or bloody show; External FHT and external uterine monitors used, FHT cat 1 Blood type: A-; Rhogam given 07/04 Antibody screen: Neg GBS: Neg Rubella: Immune VDRL/RPR: Non-reactive Gonorrhea: Not detected Chalmydia: Not detected HIV: Non-reactive HbSAg: Non-reactive Discharge Data Consultations 10/02/23 08:16 Consult Anesthesiology Stat Procedures Performed Operation Date: 10/03/23 16:45 Actual Procedures p Section in LD for living male child at 1739(Bilateral) - Barbara Montez MD Hospital Course (1) Post-operative state: (2) care and examination: Plan 33 yo G1 at 41 wga presented for induction of labor one day ago. Induction was begun with desai bulb and pitocin. Following bulb expulsion she had SROM. Pitocin was titrated up to 30 with minimal change and IUPC in place so pit break was given. Pitocin was titrated up again to 30 still without adequate contracti ons. She did not make any further progress and so discussed that this was failed induction and recommended to proceed with above procedure. See operative report for details. Post operative course was uncomplicated other than a skin rash that she will call if eval needs/does not resolve Coding Level of Care Code None Diagnoses Post-operative state Z98.890 care and examination Z39.2
== END 2023-10-06 16:30 | disposition home or self-care (01) | DRG 788 ==
LOC: 4S1 07:39 → 4E2 10-03 20:50
DX: O48.0 Post-term pregnancy; O62.1 Secondary uterine inertia; Z79.899 Other long term (current) drug therapy; O26.893 Other specified pregnancy related conditions, third trimester; Z67.91 Unspecified blood type, Rh negative; O66.40 Failed trial of labor, unspecified; Z37.0 Single live birth; Z3A.40 40 weeks gestation of pregnancy; O99.73 Diseases of the skin and subcutaneous tissue complicating the puerperium